=== PATIENT | female | born 1950 | race Caucasian/White ===

== ENCOUNTER 2017-03-01 15:26 | Emergency (ER) | payer MEDICARE ==
[2017-03-01 17:45] VITALS: BP 155/101
[2017-03-01] MEDS ORDERED: TYLENOL PO ONE (17:45)
[2017-03-01] MEDS ORDERED: TYLENOL ONE (17:47)
--- NOTE | 2017-03-01 18:33 | XRay Report ---
FINAL REPORT EXAM: XR CHEST 1V AP HISTORY: possible Sepsis TECHNIQUE: PA and lateral views of the chest PRIORS: None. FINDINGS: Lines, tubes, and devices: N/A Lungs and pleura: Trachea is normal in position. Alveolar infiltrate in the lingula is present. Lungs are otherwise clear of pleural effusion, vascular congestion, or pneumothorax. Cardiomediastinal silhouette: Cardiac and mediastinal silhouettes are unremarkable. Other: Bony structures are intact. IMPRESSION: Lingular infiltrate suspicious for early pneumonia.
[2017-03-01 19:00] LABS: Basophils % (Auto) 0.2 % (0.0-1.8); Eosinophils % (Auto) 0.1 % (0.0-4.3); Hematocrit 41.9 % (30.3-42.9); Hemoglobin 14.2 gm/dl (10.1-14.3); Lymphocytes # (Auto) 0.5 K/mm3 (1.2-5.4); Lymphocytes % (Auto) 5.2 % (13.4-35.0); Mean Corpuscular HGB Conc 34 % (30-34); Mean Corpuscular Hemoglobin 30 pg (28-32); Mean Corpuscular Volume 89 fl (79-97); Monocytes # (Auto) 0.6 K/mm3 (0.0-0.8); Monocytes % (Auto) 6.7 % (0.0-7.3); Platelet Count 151 K/mm3 (140-440); Red Blood Count 4.69 M/mm3 (3.65-5.03); Red Cell Distribution Width 13.1 % (13.2-15.2)
[2017-03-01 19:11] LABS: INR 0.86 (0.87-1.13)
[2017-03-01 19:19] LABS: Alanine Aminotransferase 33 units/L (7-56); Albumin 4.8 g/dL (3.9-5); BUN/Creatinine Ratio 13; Blood Urea Nitrogen 9 mg/dL (7-17); Calcium 9.2 mg/dL (8.4-10.2); Hemolysis Index 3
== END 2017-03-01 19:00 | disposition left against medical advice (07) ==
LOC: ED 15:26
DX: J11.1 Influenza due to unidentified influenza virus with other respiratory manifestations (principal); Z53.21 Procedure and treatment not carried out due to patient leaving prior to being seen by health care provider
CPT/HCPCS: 36415; 71046; 80053; 82140; 82805; 85025; 85610; 87040; 93005; 93010

== ENCOUNTER 2017-03-01 23:22 | Emergency (ER) | payer MEDICARE ==
[2017-03-02] MEDS ORDERED: LEVAQUIN PO ONE (02:51)
[2017-03-02] MEDS ORDERED: TESSALON PERLES PO ONE (02:51)
--- NOTE | 2017-03-02 02:51 | Emergency Department Report ---
Pediatric URI - HPI Chief Complaint: Sore Throat Stated Complaint: SORE THROAT, CONGESTION Time Seen by Provider: 03/02/17 02:35 Duration: 3 Days Pain Location: Chest Symptoms: Yes Rhinorrhea, Yes Sore Throat (discomfort with swallowing 4 out of 10), Yes Cough (productive of clear sputum), Yes Shortness of Breath, No Ear Pain, No Sick Contacts, No Able to Tolerate Fluids, No Good Urine Output, No Listless Behavior Other History: A she states she has had pneumonia in the past. Patient's MAXIMUM TEMPERATURE is 101.5. Patient is also complaining of palpitations when her fever elevates. Patient denies any current chest pain ED Review of Systems ROS: Stated complaint: SORE THROAT, CONGESTION Other details as noted in HPI Comment: All other systems reviewed and negative Pediatric Past Medical History - Surgeries & Procedures Additional Surgical History: EYE-OU, Bilateral Shoulder, C-Secx2 - Chronic Health Problems Additional medical history: Hiatal Hernia ED Peds URI Exam - Exam General: Vital signs noted. No distress. Alert and acting appropriately. HEENT: Yes Rhinorrhea, No Pharyngeal Erythema, No Pharyngeal Exudates, No Moist Mucous Membranes, No Conjuctival Injection, No Frontal Tenderness, No Maxillary Tenderness Ear: Neither EAC Pain, Neither EAC Discharge Neck: Yes Supple, No Adenopathy Lungs: Yes Good Air Exchange, Yes Cough, No Wheezes, No Ronchi, No Stridor, No Labored Respirations, No Retractions, No Use of Accessory Muscles Heart: Yes Regular, No Murmur Abdomen: Yes Normal Bowel Sounds, No Tenderness, No Peritoneal Signs Skin: No Rash, No Eczema Neurologic: Alert and oriented, no deficits. Musculoskeletal: Unremarkable. ED Course Vital Signs 03/02/17 00:57 Temperature 99.2 F Pulse Rate 108 H Respiratory 18 Rate Blood Pressure 133/81 O2 Sat by Pulse 100 Oximetry ED Medical Decision Making - Radiology Data Radiology results: report reviewed X-ray of the chest shows a lingular infiltrate suspicious for early pneumonia - Medical Decision Making Patient be started on antibiotics secondary to the high fever and her age be discharged home Critical care attestation.: If time is entered above; I have spent that time in minutes in the direct care of this critically ill patient, excluding procedure time. ED Disposition Clinical Impression: Lingular pneumonia Disposition: DC-01 TO HOME OR SELFCARE Is pt being admited?: No Does the pt Need Aspirin: No Condition: Fair Instructions: Community-acquired Pneumonia (ED) Prescriptions: ALBUTEROL Inhaler [ProAir HFA Inhaler] 2 puff IH QID PRN #1 inhalation PRN Reason: Shortness Of Breath Benzonatate [Tessalon Perle] 100 mg PO TID #12 capsule Levofloxacin [Levaquin TAB] 500 mg PO QDAY #10 tablet traMADol [Ultram] 50 mg PO Q6HR PRN #12 tablet PRN Reason: Pain Referrals: LESLEY JUAREZ MD [Primary Care Provider] - 3-5 Days
[2017-03-02] MEDS ORDERED: TYLENOL PO ONE (03:04)
[2017-03-02 04:38] VITALS: BP 165/80
== END 2017-03-02 03:55 | disposition home or self-care (01) ==
LOC: ED 23:22
DX: J18.9 Pneumonia, unspecified organism (principal)
CPT/HCPCS: 87116; 87430; 99282

== ENCOUNTER 2017-05-02 17:36 | Emergency (ER) | payer MEDICARE ==
--- NOTE | 2017-05-02 20:46 | Emergency Department Report ---
HPI - General Chief Complaint: Sore Throat Time Seen by Provider: 05/02/17 20:45 - HPI HPI: Patient reports sore throat, productive cough, difficulty breathing that the pain on and off times one week. Throat pain is 10 out of 10. Denies any chest pain. Denies any nausea or vomiting. Denies any fever or chills. Patient has a history of COPD, diabetes, GERD and hypertension. She also has a history of anxiety. Pain is worse with swallowing and eating. She said when she lies at night pain is worse. Denies any nasal congestion or runny nose. Denies any drooling. Denies any swelling of tongue. ED Past Medical Hx - Past Medical History Previous Medical History?: Yes Hx Hypertension: Yes Hx Diabetes: Yes Hx GERD: Yes Hx Psychiatric Treatment: Yes (Anxiety) Hx COPD: Yes Additional medical history: Hiatal Hernia - Surgical History Past Surgical History?: Yes Additional Surgical History: EYE-OU, Bilateral Shoulder, C-Secx2 - Family History Family history: no significant - Social History Smoking Status: Never Smoker Substance Use Type: None - Medications Home Medications: Home Medications Medication Instructions Recorded Confirmed Last Taken Type ALBUTEROL Inhaler [ProAir HFA 2 puff IH QID PRN #1 inhalation 03/02/17 Unknown Rx Inhaler] Benzonatate [Tessalon Perle] 100 mg PO TID #12 capsule 03/02/17 Unknown Rx Levofloxacin [Levaquin TAB] 500 mg PO QDAY #10 tablet 03/02/17 Unknown Rx traMADol [Ultram] 50 mg PO Q6HR PRN #12 tablet 03/02/17 Unknown Rx Azithromycin [Zithromax Z-MATTEO] 250 mg PO DAILY 1 Days #1 pack 05/02/17 Unknown Rx Ibuprofen [Motrin] 600 mg PO Q8H PRN #12 tablet 05/02/17 Unknown Rx predniSONE [Deltasone] 50 mg PO QAM 3 Days #3 tablet 05/02/17 Unknown Rx ED Review of Systems ROS: Stated complaint: SORE THROAT Other details as noted in HPI Comment: All other systems reviewed and negative Constitutional: no symptoms reported Eyes: denies: eye pain ENT: throat pain. denies: ear pain, congestion Respiratory: cough, shortness of breath, SOB with exertion. denies: orthopnea, SOB at rest, stridor, wheezing Cardiovascular: denies: chest pain, palpitations, dyspnea on exertion, edema, syncope, paroxysmal nocturnal dyspnea Gastrointestinal: denies: abdominal pain, nausea, vomiting Musculoskeletal: denies: back pain, joint swelling, arthralgia, myalgia Skin: denies: rash Neurological: denies: headache, weakness, numbness, paresthesias, confusion, abnormal gait, vertigo Physical Exam - Physical Exam Vital Signs: Vital Signs 05/02/17 17:50 Temperature 98.2 F Pulse Rate 16 L Respiratory 16 Rate Blood Pressure 151/79 O2 Sat by Pulse 95 Oximetry Vital Signs 05/02/17 05/02/17 17:50 21:44 Temperature 98.2 F Pulse Rate 16 L Respiratory 16 18 Rate Blood Pressure 151/79 O2 Sat by Pulse 95 Oximetry Vital Signs 05/02/17 05/02/17 05/02/17 17:50 21:44 22:45 Temperature 98.2 F Pulse Rate 16 L 74 Respiratory 16 18 18 Rate Blood Pressure 151/79 Blood Pressure 140/72 [Left] O2 Sat by Pulse 95 98 Oximetry General: This is a 66-year-old female well-nourished well-developed in no acute distress. Patient is nontoxic in appearance. Physical Exam: Head: Normocephalic atraumatic Ears:BIateral TM pearly schumacher. Kevin EAC with normal exam. No mastoid bone tenderness. Mouth: Moist, positive pharyngeal erythema without exudate . No drooling. Patient can control her secretions. No tonsillar erythema or exudate. UVULA midline and oral airways patent. No peritonsillar abscess Neck: Nontender to palpate, supple, normal range of motion. No adenopathy. No c- spine tenderness. Nose: Bilateral nasal mucosa normal mucosa. Maxillary and frontal sinuses non- tender to palpate. Eyes: Sclerae and conjunctiva without injection. Bilateral pupils equal and reactive to light. Bilateral lids are normal. Normal accommodation.BEOMI Lungs: Clear to auscultate bilaterally, no rhonchi wheezes or rales. Normal work of breathing and no chest wall tenderness Extremity: No clubbing, cyanosis or edema. +2 pulses all extremities and no neurovascular compromise CV: S1, S2. Regular rate and rhythm negative murmur. Capillary refill is less than 3 seconds Skin: Clean dry and intact, no rashes or lesions Psych: Normal mood and behavior ED Course Vital Signs 05/02/17 17:50 Temperature 98.2 F Pulse Rate 16 L Respiratory 16 Rate Blood Pressure 151/79 O2 Sat by Pulse 95 Oximetry Vital Signs 05/02/17 05/02/17 05/02/17 17:50 21:44 22:45 Temperature 98.2 F Pulse Rate 16 L 74 Respiratory 16 18 18 Rate Blood Pressure 151/79 Blood Pressure 140/72 [Left] O2 Sat by Pulse 95 98 Oximetry - Reevaluation(s) Reevaluation #1: 05/02/17 20:56 Patient received Magic mouthwash to help with sore throat, Motrin 800 mg by mouth and Deltasone 60 mg by mouth. Awaiting x-ray and strep. Reevaluation #2: 05/02/17 21:52 Strep test is negative. Patient said it felt better. Awaiting chest x-ray. Xopenex and Atrovent. ED Medical Decision Making - Radiology Data Radiology results: image reviewed interpreted by me: X-ray reviewed by myself and Dr. Mcpherson and no acute cardiopulmonary findings noted. - Medical Decision Making ED course: Pt complaints of sore throat, productive cough, difficulty breathing and this has been ongoing on and off 1 week. She says she had pneumonia in the past and she is worried about it. She says she usually gets short of breath with exertion because of COPD. Patient does not have any shortness of breath without any exertion. She doesn't have any chest pain. Her pulse ox on room air was 95% in triage but it's 98% on room air in ED room. Patient received Magic mouthwash to soothe her throat, Motrin 800 mg by mouth and Deltasone 60 mg by mouth to reduce swelling to throat. She had erythema, mild swelling to oropharynx. No exudate. Strep test is negative. Chest x-ray shows no acute cardiopulmonary findings and preliminary read and is pending. Discussed the patient that based on her chronic medical problems and physical findings I will put her on antibiotic to cover her sore throat and also her lungs. I discussed with her that she has upper respiratory infection with cough and congestion and pharyngitis which is sore throat and she voiced understanding. Patient discharged home a prescription for prednisone, Zithromax and Motrin. Critical care attestation.: If time is entered above; I have spent that time in minutes in the direct care of this critically ill patient, excluding procedure time. ED Disposition Clinical Impression: URI with cough and congestion Pharyngitis Qualifiers: Pharyngitis/tonsillitis etiology: unspecified etiology Qualified Code(s): J02.9 - Acute pharyngitis, unspecified Disposition: - TO HOME OR SELFCARE Is pt being admited?: No Does the pt Need Aspirin: No Condition: Stable Instructions: Upper Respiratory Infection (ED), Pharyngitis (ED), Acute Cough ( ED) Additional Instructions: Please take prednisone 50 mg once daily 3 days. This can increase your blood glucose so make sure that you take your blood sugar more often than usual. Take Motrin as prescribed for sore throat Take Z-Matteo for antibiotic this will treat upper respiratory infection. Please report to your primary care physician in 4 days and if he does not have a primary care physician you can follow-up with outside Medical Center. Your symptoms worsen prior to 4 days, he will return to the emergency room for further evaluation and treatment. Prescriptions: Azithromycin [Zithromax Z-MATTEO] 250 mg PO DAILY 1 Days #1 pack Ibuprofen [Motrin] 600 mg PO Q8H PRN #12 tablet PRN Reason: Pain predniSONE [Deltasone] 50 mg PO QAM 3 Days #3 tablet Referrals: PRIMARY CARE,MD [Primary Care Provider] - 2-3 Days Forms: Work/School Release Form(ED)
[2017-05-02] MEDS ORDERED: MOTRIN PO ONE (20:48)
[2017-05-02] MEDS ORDERED: DELTASONE PO ONE (20:48)
[2017-05-02] MEDS ORDERED: ATROVENT IH ONE (21:51)
[2017-05-02] MEDS ORDERED: XOPENEX IH ONE (21:51)
[2017-05-02] MEDS ORDERED: MAGIC MOUTHWASH PO ONE (22:00)
--- NOTE | 2017-05-02 22:43 | XRay Report ---
FINAL REPORT PROCEDURE: AP and lateral chest x-ray TECHNIQUE: PA and lateral chest radiographs were obtained. CPT 29223 HISTORY: cough with fever COMPARISON: No prior studies are available for comparison. FINDINGS: The heart is magnified due to projection appears to be upper normal size. The pulmonary vasculature is not distended. There is minimal linear density in the left base suggesting a small amount of parenchymal scarring or persistent atelectasis. No dense consolidations effusions or pneumothorax are visualized. No acute bony abnormalities are seen. IMPRESSION: Small amount of linear atelectasis or scarring suspected in the left base. Heart size upper normal. No other abnormalities are identified..
[2017-05-02 23:27] VITALS: BP 149/76
== END 2017-05-02 23:29 | disposition home or self-care (01) ==
LOC: ED 17:36
DX: J02.9 Acute pharyngitis, unspecified (principal); J06.9 Acute upper respiratory infection, unspecified; I10 Essential (primary) hypertension; E11.9 Type 2 diabetes mellitus without complications; K21.9 Gastro-esophageal reflux disease without esophagitis; J44.9 Chronic obstructive pulmonary disease, unspecified
CPT/HCPCS: 71046; 87116; 87430; 99284; J7512

== ENCOUNTER 2017-05-24 12:50 | Outpatient (CLI) | payer MEDICARE ==
--- NOTE | 2017-05-24 18:56 | Cat Scan Report ---
FINAL REPORT EXAM: CT SINUSES WO CON HISTORY: PAIN IN THROAT TECHNIQUE: CT examination of the paranasal sinus region without IV contrast PRIORS: None. FINDINGS: Acute fracture or focal osseous lesion: None Visualized mastoid air cells: Clear Visualized middle ear cavities: Clear Frontal sinuses: Minimal mucosal thickening bilaterally Ethmoid sinuses: Minimal mucosal thickening bilaterally Sphenoid sinuses: Slight mucosal thickening bilaterally Maxillary sinuses: Slight mucosal thickening bilaterally Acute fluid level: None Maxillary infundibulum patent bilateral Nasal turbinates normal bilateral Nasal septum relatively midline No evidence of mass or abnormal fluid collection IMPRESSION: Multifocal minimal to slight paranasal sinus mucosal thickening without evidence of acute fluid level
== END 2017-05-24 12:51 | disposition home or self-care (01) ==
LOC: CT 12:50
PROVIDERS: ATTEND Otolaryngology
DX: R07.0 Pain in throat (principal); R06.02 Shortness of breath; I10 Essential (primary) hypertension; K21.9 Gastro-esophageal reflux disease without esophagitis
CPT/HCPCS: 70486

== ENCOUNTER 2018-06-12 06:47 | Outpatient (CLI) | payer MEDICARE ==
--- NOTE | 2018-06-12 09:18 | Fluoroscopy Report ---
BARIUM SWALLOW History: Dysphagia, pain. Findings: 69 fluoroscopic images were captured during this exam. Deglutition was normal. There is no evidence for aspiration. Laryngeal structures are unremarkable. The cervical and thoracic esophagus is normal caliber and mucosal pattern throughout. No evidence for mass, obstruction or ulceration. No hiatal hernia. Multiple episodes of esophageal spasm were witnessed during this exam. There was also delayed emptying of the esophagus which appeared to be secondary to dysmotility. No reflux was witnessed. IMPRESSION: No esophageal lesion is identified. Esophageal dysmotility is suspected. Multiple esophageal spasms were witnessed during this exam. Esophagitis is suspected. This is probably secondary to reflux disease although none was witnessed during this exam.
== END 2018-06-12 06:48 | disposition home or self-care (01) ==
LOC: FLUORO 06:47
PROVIDERS: ATTEND Internal Medicine Hematology & Oncology
DX: R13.19 Other dysphagia (principal); R06.00 Dyspnea, unspecified; R07.9 Chest pain, unspecified; I10 Essential (primary) hypertension; K21.9 Gastro-esophageal reflux disease without esophagitis; J44.9 Chronic obstructive pulmonary disease, unspecified
CPT/HCPCS: 74220; 93306

== ENCOUNTER 2018-06-18 10:07 | Outpatient (CLI) | payer MEDICARE ==
--- NOTE | 2018-06-18 12:11 | XRay Report ---
BILATERAL HANDS, 3 VIEWS BILATERAL WRISTS, 3 VIEWS BILATERAL KNEES, 3 VIEWS History: Pain. Findings: No acute osseous findings or joint pathology is identified. No significant degenerative changes. The soft tissues are unremarkable. Impression: Unremarkable hands, wrists and knees.
--- NOTE | 2018-06-18 13:22 | Mammography Report ---
BILATERAL DIGITAL SCREENING MAMMOGRAM with CAD: 06/18/18 10:07:00 CLINICAL: Routine screening. COMPARISON:None available. FINDINGS: The breasts are heterogeneously dense, which may obscure small masses. No mass, architectural distortion or suspicious calcifications. IMPRESSION: No mammographic evidence of malignancy. BI-RADS CATEGORY: 1 - - Negative RECOMMENDATION: Routine mammographic screening in one year. COMMENT: Patient follow-up letters are generated by our [employer] application.
== END 2018-06-18 10:08 | disposition home or self-care (01) ==
LOC: MAMMO 10:07
PROVIDERS: ATTEND Internal Medicine Hematology & Oncology
DX: Z12.31 Encounter for screening mammogram for malignant neoplasm of breast (principal); M25.532 Pain in left wrist; M25.531 Pain in right wrist; M25.561 Pain in right knee; M25.562 Pain in left knee; M79.641 Pain in right hand; M79.642 Pain in left hand; I10 Essential (primary) hypertension; J44.9 Chronic obstructive pulmonary disease, unspecified; K21.9 Gastro-esophageal reflux disease without esophagitis
CPT/HCPCS: 77067

== ENCOUNTER 2018-07-07 17:43 | Emergency (ER) | payer MEDICARE | END 2018-07-07 18:17 | disposition left against medical advice (07) | LOC: ED 17:43 | DX: I20.9 Angina pectoris, unspecified (principal); Z53.21 Procedure and treatment not carried out due to patient leaving prior to being seen by health care provider ==

== ENCOUNTER 2018-07-16 08:45 | Outpatient (CLI) | payer MEDICARE ==
--- NOTE | 2018-07-17 10:23 | Ultrasound Report ---
TRANSABDOMINAL AND TRANSVAGINAL PELVIC ULTRASOUND: 07/16/18 08:45:00 CLINICAL: Pelvic and perineal pain. FINDINGS: Transabdominal and transvaginal pelvic ultrasound demonstrated an enlarged fibroid postmenopausal uterus measuring 9.4 x 3.0 x 5.7 cm. A posterior fundal intramural fibroid to the right of midline measures 2.1 cm.The endometrium is mildly thickened and measures 4 mm. Ovaries are not identified on the endovaginal exam. The technologist measured the right ovary to measure 3.1 x 1.1 x 1.8 cm and the left ovary to measure 2.2 x 1.0 x 2.3 cm. No adnexal mass. No free fluid. Normal urinary bladder. IMPRESSION: A mildly enlarged fibroid uterus. Minimal endometrial thickening. Normal ovaries.
--- NOTE | 2018-07-23 16:04 | Magnetic Resonance Report ---
MRI BRAIN WITHOUT CONTRAST: 07/16/18 CLINICAL: Headache TECHNIQUE: Axial diffusion, T1, T2, gradient echo T2*, coronal and axial FLAIR and sagittal T1 sequences on a 1.5 Tila magnet. FINDINGS: The frontal and temporal lobe sulci are mildly enlarged compared to the rest of the brain. The ventricles are normal size. No restricted diffusion. A single tiny white matter hyperintense focus on T2 and FLAIR in the left frontal lobe. No mass or mass effect. No hemorrhage, edema or extra-axial collection. Normal pituitary and optic chiasm. The brainstem and cerebellum are normal. Intact vascular flow voids. Bilateral ethmoid mucoperiosteal thickening. No air-fluid levels. The rest of the sinuses are clear. The orbits, and soft tissues are normal. Normal calvarium and skull base. IMPRESSION: Mild frontotemporal cortical atrophy. Ethmoid sinusitis. No evidence of infarct or mass.
== END 2018-07-16 08:46 | disposition home or self-care (01) ==
LOC: US 08:45
PROVIDERS: ATTEND Internal Medicine Hematology & Oncology
DX: D25.1 Intramural leiomyoma of uterus (principal); G31.9 Degenerative disease of nervous system, unspecified; J32.2 Chronic ethmoidal sinusitis; R93.89 Abnormal findings on diagnostic imaging of other specified body structures; I10 Essential (primary) hypertension; K21.9 Gastro-esophageal reflux disease without esophagitis
CPT/HCPCS: 70551; 76830; 76856

== ENCOUNTER 2019-02-10 15:38 | Outpatient (CLI) | payer MEDICARE ==
--- NOTE | 2019-02-10 16:54 | XRay Report ---
CHEST PA AND LATERAL VIEWS INDICATION: MAIN: COUGH; CEAR PRODUCTIVE COUGH X 1 WEEK; HX OF COPD, PNUEMONIA, AND BRONCHITIS. COMPARISON: 03/01/2017 FINDINGS: Support devices: None Heart: Normal and unchanged Lungs/Pleura: Slight pleural-parenchymal density is again demonstrated in the lingula, unchanged and probably representing scarring/atelectasis. There is mild, diffuse, chronic appearing interstitial di sease. No acute superimposed disease. No pleural effusion. IMPRESSION: 1. Slight pleural-parenchymal scarring in the lingula and mild, chronic interstitial disease, but no acute disease. Signer Name: Hoang Gay MD Signed: 02/10/2019 4:49 PM Workstation Name: [id number]
== END 2019-02-10 15:39 | disposition home or self-care (01) ==
LOC: XRAY 15:38
PROVIDERS: ATTEND Internal Medicine Hematology & Oncology
DX: J44.9 Chronic obstructive pulmonary disease, unspecified (principal)
CPT/HCPCS: 71046

== ENCOUNTER 2021-07-19 14:32 | Outpatient (CLI) | payer MEDICARE ==
--- NOTE | 2021-07-19 15:50 | XRay Report ---
LUMBOSACRAL SPINE 5 VIEWS INDICATION: FLANK PAIN, LOWER BACK PAIN. COMPARISON: 09/18/2019 IMPRESSION: Normal alignment. Mild discogenic DJD and facet arthropathy are identified at all level s. No high-grade neural foraminal narrowing is demonstrated on the oblique images. No acute osseous or soft tissue abnormality. No significant change is appreciated since 09/18/2019. Signer Name: Roman Garcia Jr, MD Signed: 07/19/2021 3:45 PM Workstation Name: [id number]
--- NOTE | 2021-07-19 16:00 | XRay Report ---
ABDOMEN 1 VIEW(S) INDICATION / CLINICAL INFORMATION: FLANK PAIN. COMPARISON: None available. FINDINGS: TUBES / LINES: None. BOWEL GAS PATTERN: There is moderate fecal matter throughout the colon. No evidence for dilated bowel . FREE AIR / EXTRALUMINAL GAS: None seen. ADDITIONAL FINDINGS: The renal shadows are partially obscured by fecal matter in the colon. There is no obvious nephrolithiasis. IMPRESSION: Mild constipation. No convincing nephrolithiasis is detected. Signer Name: Roman Garcia Jr, MD Signed: 07/19/2021 3:56 PM Workstation Name: [id number]
== END 2021-07-19 14:33 | disposition home or self-care (01) ==
LOC: XRAY 14:32
PROVIDERS: ATTEND Internal Medicine Hematology & Oncology
DX: M47.816 Spondylosis without myelopathy or radiculopathy, lumbar region (principal); K56.41 Fecal impaction; R10.9 Unspecified abdominal pain
CPT/HCPCS: 72110; 74018